=== PATIENT | male | born 1960 | race African-American/Black ===

== ENCOUNTER 2016-11-20 21:29 | Emergency (ER) | payer OTHER ==
[~2016-11-20] VITALS: Ht 182.9 cm; Wt 90.7 kg
[~2016-11-20 21:29] MED LIST: ALBUTEROL SULF8.5 GM INH; AZITHROMYCIN250 MG ORAL; DIFLUCAN100 MG ORAL; IBUPROFEN600 MG ORAL; MEDROL DOSEPAK4 MG ORAL; NKM; NYSTATIN100000 UN1 ORAL; PENICILLIN V P500 MG PO; PROAIR HFA8.5 GM INH; PROMETHAZINE-D118 ML ORAL
[2016-11-20 21:30] VITALS: BP 130/84
--- NOTE | 2016-11-20 21:58 | Emergency Room Report ---
History of Present Illness General Chief Complaint: Altered Level of Consciousness Source: Patient, EMS Present Illness HPI [id number] BIBEMS from ground outside liquor store. Friends stated patient "drinking all day." "Always there." No obvious trauma noted by EMS Abrasions to left forehead over left eyebrow Awakes to physical stimuli only Patient otherwise not contributing to HPI Allergies: Coded Allergies: No Known Allergies (Unverified , 04/28/15) Patient History Past Medical History: unable to obtain Past Surgical History: unable to obtain Pertinent Family History: unable to obtain Social History: Reports: alcohol use Nursing Documentation-PMH Hx Hypertension: Yes Review of Systems All Other Systems: limited - AMS Physical Exam Vital Signs Date Time Temp Pulse Resp B/P Pulse Ox O2 Delivery O2 Flow Rate FiO2 11/20/16 21:25 98.8 84 16 130/84 100 Room Air Sp02 EP Interpretation: reviewed, normal General Appearance: normal inspection, well appearing, no apparent distress, alert, GCS 15, other - +AOB, awake only to physical stimuli Head: normocephalic, other - Abrasions over left eyebrow Eyes: bilateral eye EOMI, bilateral eye PERRL ENT: normal ENT inspection, hearing grossly normal, normal voice Neck: normal inspection, full range of motion, supple, no bony tend Respiratory: normal inspection, lungs clear, normal breath sounds, no respiratory distress, no retraction, no wheezing Cardiovascular #1: regular rate, rhythm, no edema Gastrointestinal: normal inspection, normal bowel sounds, non tender, soft, no guarding, no hernia Genitourinary: no CVA tenderness Musculoskeletal: normal inspection, back normal, normal range of motion, Latanya' s Sign negative Neurologic: normal inspection, alert, responsive, binding folder machine III-XII nml as tested, motor strength/tone normal, speech normal Psychiatric: normal inspection, judgement/insight normal, mood/affect normal Skin: normal inspection, normal color, no rash Lymphatic: normal inspection Medical Decision Making Diagnostic Impression: Primary Impression: Altered level of consciousness Additional Impressions: Alcohol intoxication Qualified Codes: F10.929 - Alcohol use, unspecified with intoxication, unspecified Forehead abrasion Qualified Codes: S00.81XA - Abrasion of other part of head, initial encounter ER Course CT head negative for ICH Observed overnight until sobriety Provided safe environment for sobriety in ER Asked for, received food in AM Ambulating with steady gait Tetanus given DC Last Vital Signs Date Time Temp Pulse Resp B/P Pulse Ox O2 Delivery O2 Flow Rate FiO2 11/20/16 21:25 98.8 84 16 130/84 100 Room Air Status: improved Disposition: HOME, SELF-CARE MARLENI STEVENSON M.D. Nov 20, 2016 21:58
[2016-11-20] MEDS ORDERED: Tetanus/Diptheria/Pertussis Vaccine 0.5ml Syr IM ONE (23:30)
[2016-11-20 23:44] VITALS: BP 130/84
--- NOTE | 2016-11-23 08:16 | Diagnostic Imaging Report ---
Indication: Altered level of consciousness Technique: Continuous helical CT scanning of the head was performed utilizing automated exposure control without intravenous contrast material. Axial and coronal reconstructions were obtained. Comparison: None CT dose: Total DLP 2783 mGycm; CTDI vol 70.4 and 70.4 mGy Findings: There is no acute intracranial hemorrhage, mass effect or cortical edema. The ventricles, cisterns and sulci are within normal limits for age. The posterior fossa and fourth ventricle are unremarkable. Sellar and suprasellar regions are grossly unremarkable. Visualized mastoid air cells and paranasal sinuses are unremarkable. There is no skull fracture. There is a fracture deformity of the left zygomatic arch. Impression: No evidence of acute intracranial hemorrhage, mass effect or cortical edema. MRI may be obtained for more sensitive evaluation as clinically indicated. Fracture deformity of the left zygomatic arch may be nonacute as no adjacent soft tissue swelling identified. Clinical correlation recommended. The CT scanner at [facility] is accredited by the [employer] and the scans are performed using protocols designed to limit radiation exposure to as low as reasonably achievable to attain images of sufficient resolution adequate for diagnostic evaluation.
== END 2016-11-20 23:40 | disposition home or self-care (01) ==
LOC: EDBD 21:29 → EMR 22:45
DX: R41.82 Altered mental status, unspecified (principal); F10.129 Alcohol abuse with intoxication, unspecified; S00.212A Abrasion of left eyelid and periocular area, initial encounter; X58.XXXA Exposure to other specified factors, initial encounter; Y92.89 Other specified places as the place of occurrence of the external cause; Z23 Encounter for immunization; I10 Essential (primary) hypertension
CPT/HCPCS: 70450; 90471; 90715; 96372; 99283

== ENCOUNTER 2019-03-24 20:43 | Emergency (ER) | payer OTHER ==
[~2019-03-24] VITALS: Ht 177.8 cm; Wt 108.9 kg
[2019-03-24 21:00] VITALS: BP 145/92
--- NOTE | 2019-03-24 21:06 | Emergency Room Report ---
History of Present Illness General Chief Complaint: Overdose Source: Patient, Medical Record, EMS Present Illness HPI This is a 59-year-old male with a history of substance abuse. On last visit he was positive for PCP and methamphetamine. He presents with chief complaint of altered mental status and overdose. He was at a residence and was unresponsive. Someone called 911. EMS said his pupils were pinpoint. They gave him Narcan in which he responded. Patient denies any drug use. He said he was drinking alcohol. He denies suicidal thoughts homicidal thought. He denies any other complaint. No fever chills. No nausea no vomiting. Allergies: Coded Allergies: No Known Allergies (Unverified , 04/28/15) Patient History Past Medical History: see triage record, old chart reviewed Past Surgical History: other Pertinent Family History: none Social History: Reports: alcohol use Immunizations: other Reviewed Nursing Documentation: PMH: Agreed; PSxH: Agreed Nursing Documentation-PMH Past Medical History: No History, Except For Hx Hypertension: Yes Review of Systems Eye: Denies: eye pain, blurred vision ENT: Denies: ear pain, nose congestion, throat swelling Respiratory: Denies: cough, shortness of breath Cardiovascular: Denies: chest pain, palpitations Gastrointestinal: Denies: abdominal pain, diarrhea, nausea, vomiting Musculoskeletal: Denies: back pain, joint pain Skin: Denies: rash Neurological: Denies: headache, numbness Endocrine: Denies: increased thirst, increased urine Hematologic/Lymphatic: Denies: easy bruising All Other Systems: negative except mentioned in HPI Physical Exam Vital Signs Date Time Temp Pulse Resp B/P (MAP) Pulse Ox O2 Delivery O2 Flow Rate FiO2 03/24/19 20:39 98.8 115 20 189/115 (139) 96 Room Air Vitals with high blood pressure Sp02 EP Interpretation: reviewed, normal General Appearance: well appearing, no apparent distress, alert Head: normocephalic, atraumatic Eyes: bilateral eye PERRL, bilateral eye EOMI ENT: hearing grossly normal, normal pharynx Neck: full range of motion, supple, no meningismus Respiratory: chest non-tender, lungs clear, normal breath sounds Cardiovascular #1: regular rate, rhythm, no murmur Gastrointestinal: normal bowel sounds, non tender, no mass, no organomegaly, no bruit, non-distended Musculoskeletal: back normal, normal range of motion, gait/station normal Psychiatric: mood/affect normal Medical Decision Making Diagnostic Impression: Primary Impression: Drug overdose Qualified Codes: T50.901A - Poisoning by unspecified drugs, medicaments and biological substances, accidental (unintentional), initial encounter Additional Impression: Hypertension Qualified Codes: I10 - Essential (primary) hypertension ER Course Patient with drug overdose. Most likely opioid in nature. He denied it however. He has been here for almost an hour. He is awake. He does not want anything to be done. He is walking around without any problem. No nausea no vomiting. Patient wants to leave. I advised him to stay for low bit longer but he refused. He is competent to make that decision. This patient is a chronic risk of self injury due to poor impulse control, limited coping skills, and judgment intermittently impaired by intoxication. I believe that the available clinical evidence to suggest that these characteristics derived primarily from personality disorder and are likely very stable over time. Hospitalization would likely attenuate risk of self-harm only during nursing home period, without lasting risk reduction. Serious self-harm , while possible, would likely be inadvertent, and because of impulsivity, and foreseeable. For these reasons, I do not believe hospitalization would provide meaningful reduction in risk of self-harm. Last Vital Signs Date Time Temp Pulse Resp B/P (MAP) Pulse Ox O2 Delivery O2 Flow Rate FiO2 03/24/19 20:39 98.8 115 20 189/115 (139) 96 Room Air Status: improved Disposition: AGAINST MEDICAL ADVICE Condition: Stable Ken Harris MD Mar 24, 2019 21:06
== END 2019-03-24 21:15 | disposition left against medical advice (07) ==
LOC: EDBD 20:43 → EMR 21:12
DX: T50.901A Poisoning by unspecified drugs, medicaments and biological substances, accidental (unintentional), initial encounter (principal); I10 Essential (primary) hypertension; Z72.89 Other problems related to lifestyle; Z53.29 Procedure and treatment not carried out because of patient's decision for other reasons
CPT/HCPCS: 99281

== ENCOUNTER 2019-03-30 23:58 | Emergency (ER) | payer OTHER ==
[~2019-03-30] VITALS: Ht 185.4 cm; Wt 95.3 kg
[2019-03-31] VITALS: BP 124/90
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
[2019-03-31 01:13] VITALS: BP 124/90
== END 2019-03-31 01:14 | disposition home or self-care (01) ==
LOC: EDUNIT# 23:58 → EDBD 23:58 → EMR 03-31 00:32
DX: F15.10 Other stimulant abuse, uncomplicated (principal); F16.10 Hallucinogen abuse, uncomplicated; F17.200 Nicotine dependence, unspecified, uncomplicated; Z72.89 Other problems related to lifestyle
CPT/HCPCS: 99283